=== PATIENT | male | born 1990 | race African-American/Black ===

== ENCOUNTER 2025-03-03 15:44 | Emergency (ER) | payer SELFPAY ==
[2025-03-03 15:53] VITALS: BP 139/82; PULSE 94; RESP 18; TEMP 37.2; O2SAT 100; BMI 22.6
--- NOTE | 2025-03-03 15:59 | ECG_ITS ---
Test Reason : NEAR SYNCOPE Blood Pressure : */* mmHG Vent. Rate : 87 BPM Atrial Rate : 87 BPM P-R Int : 142 ms QRS Dur : 84 ms QT Int : 318 ms P-R-T Axes : 82 72 60 degrees QTcB Int : 382 ms Normal sinus rhythm Minimal voltage criteria for LVH, may be normal variant ( Sokolow-Macario ) Borderline ECG No previous ECGs available Referred By: Danny Hopper Electronically Signed By: GABE SHOEMAKER MD
--- NOTE | 2025-03-03 16:02 | ED_ITS ---
HPI - General Adult General Chief complaint: General Medical Stated complaint: cholesterol test Time Seen by Provider: 03/03/25 16:59 Source: patient and old records reviewed Mode of arrival: ambulatory Limitations: no limitations History of Present Illness ED Provider: MICAH HPI narrative: 34 yo male no sig PMH here with c/o taking really hot showers and then feeling that he might pass out. No travel, URI, chest pain, trouble breathing, bloody stools. He states he also has intermittent bloody noses when he is exposed to the heat. He has no other bleeding anywhere else. He states he feels fine. He is requesting a cholesterol check. He is back to baseline. His symptoms are only associated with the heat. MD complaint: near syncope Onset (ago): day(s) (today) Radiation: non-radiation Severity: mild Relieving factors: rest Exacerbating factors: other (heat exposure) Associated symptoms: other Treatments prior to arrival: none Related Data Allergies Allergy/AdvReac Type Severity Reaction Status Date / Time No Known Allergies Allergy Verified 03/03/25 15:58 Review of Systems 2 Review of Systems: Constitutional : No Fever, No Chills, No Fatigue ENT/Mouth : No sore throat, No Rhinorrhea Eyes: No Eye Pain, No Swelling, No Redness Cardiovascular : No Chest Pain, No SOB, No Dyspnea on Exertion Respiratory : No Cough, No Sputum Gastrointestinal : No Nausea, No Vomiting, No Diarrhea, No abdominal Pain Genitourinary : No Dysuria, No Urinary Frequency, No Hematuria, Musculoskeletal : No joint pain, No Myalgias, No Joint Swelling Skin : No Skin Lesions, No rash Neuro : No Weakness, No Numbness, pos Dizziness, no Headache Psych : No Anxiety/Panic, No Depression All other systems reviewed and are negative [facility] Past Medical History Attestation statement: The following information was validated with the patient. Source: old records reviewed Medical History Near syncope Social History Social History (Updated 03/03/25 @ 17:14 by Molly Raymond DO) Patient Tobacco Use Status: Never used Tobacco Advance Directives: No Advance Directives Information Provided: No Do you have a plan to hurt others: No Plan Physical Exam ED Vital Signs: Vital Signs - 24 hr 03/03/25 15:53 Temperature 99.0 F Pulse Rate 94 Respiratory Rate 18 Blood Pressure 139/82 Pulse Oximetry 100 Oxygen Delivery Method Room Air BMI result Body Mass Index 22.6 Appearance: Alert. Oriented X3. No acute distress. Eyes: Pupils equal, round and reactive to light. ENT: Pharynx normal. L septum small area of redness and dryness no active bleeding Neck: Normal inspection. Neck supple. CVS: Normal heart rate and rhythm. Pulses normal. Respiratory: No respiratory distress. Breath sounds normal. Abdomen: Soft and nontender. Skin: Skin warm and dry. Normal skin color. Normal skin turgor. Extremities: No lower extremity edema. No calf ttp Neuro: Oriented X 3. No motor deficit. No sensory deficit. CN2-12 intact Course Course Course Narrative: RME: 34-year-old male presents to ED for near syncopal episode and wants to get cholesterol check. Patient has history of high blood pressure high cholesterol. Patient states he was in the shower that was very warm and hot and felt like he was about to pass out but did not pass out. Patient has sat down and felt his heart was racing. Patient well-appearing vital signs stable. EKG labs ordered. Medical Decision Making Medical Decision Making [facility] Narrative: 34 yo male otherwise healthy here with c/o having hx of heat exposures in shower when he felt he was going to pass out no LOC and no CP/SOB. He is PERC negative and has no ACS risk factors. His BP and labs are reassuring mild bump in LFTs he can follow up with PCP. His exam is normal. At this time suspect heat exposure. I did discuss lifestyle changes and he is also c/o intermittent hx of bloody noses - he is going to use OTC saline spray. He is stable for DC Differential Diagnosis Differential Diagnoses: The differential diagnosis associated with the presentation includes near syncope, orthostatics, dehydration, anemia Admission/Observation Consideration of admission/observation: Escalation of care including admission/observation considered work up reassuring stable for DC Lab Data [facility] Lab Attestation statement: I reviewed the patient's lab results. 03/03/25 16:15 03/03/25 16:15 Labs: Lab Results 03/03/25 Range/Units 16:15 WBC 8.0 (4.8-10.8) X10*3/uL RBC 4.42 L (4.60-5.80) X10*6/uL Hgb 14.2 (14.0-18.0) g/dl Hct 40.0 L (42.0-52.0) % MCV 90.5 (80.0-98.0) fL MCH 32.1 (27.0-33.0) pg MCHC 35.5 (31.0-36.0) g/dl RDW 12.0 (11.0-16.0) % Plt Count 166 (160-400) X10*3/uL MPV 10.9 (9.4-12.4) fL Immature Gran % (Auto) 0.2 (0.0-0.4) % Neut % (Auto) 56.9 (45-73) % Lymph % (Auto) 27.3 (20-40) % [place] % (Auto) 11.5 H (2-11) % Eos % (Auto) 3.2 (0-4) % Baso % (Auto) 0.9 (0-2) % Lymph # (Auto) 2.2 (1.2-4.9) X10*3/uL [place] # (Auto) 0.9 (0.1-1.2) X10*3/uL Eos # (Auto) 0.3 (0.0-0.4) X10*3/uL Baso # (Auto) 0.1 (0.0-0.2) X10*3/uL Abs Immat Gran (auto) 0.02 (0.00-0.03) X10*3/uL Absolute Neuts (auto) 4.6 (2.0-8.3) x10*3/uL Absolute Nucleated RBC 0.000 (0.0-0.012) X10*3/uL Nucleated RBC % (auto) 0.0 (0.0-0.2) /100WBC PT 12.8 H (10.9-12.4) SEC INR 1.1 (0.9-1.1) APTT 29.0 (26.0-36.8) SEC Sodium 138 (135-145) mmol/L Potassium 4.2 (3.3-5.1) mmol/L Chloride 107 (96-108) mmol/L Carbon Dioxide 27 (22-29) mmol/L Anion Gap 8 L (12-20) BUN 12 (9-16) mg/dL Creatinine 1.00 (0.5-1.4) mg/dL Estim Creat Clear Calc 104.4 Estimated GFR > 60 Random Glucose 97 (60-115) mg/dL Calcium 9.9 (8.4-10.2) mg/dL Total Bilirubin 0.4 (0.0-1.0) mg/dL AST 65 H (5-37) U/L ALT 45 H (0-40) U/L Alkaline Phosphatase 70 (39-117) U/L Troponin I High Sens < 2.7 (<3.5-35.0) ng/L Total Protein 7.9 (6.5-8.0) g/dL Albumin 4.9 (3.5-5.0) g/dL Triglycerides 136 (<150) mg/dL Cholesterol 119 (<200) mg/dL LDL Cholesterol, Calc 44 (<100) mg/dL HDL Cholesterol 48 (>40) mg/dL Independent Interpretation I performed an independent interpretation of an: EKG Interpretation: Rate: 87 Rhythm: NSR [place]: normal LVH Normal P waves. Normal [place]. Normal QRS complex. ST T wave : normal no JUDITH qTC: 382 prior studies: no acute ischemia The study has been interpreted contemporaneously by me. . Discharge Plan Discharge Clinical Impression: Near syncope Patient Disposition: Home, Self-Care Instructions: Near Syncope (ED) Additional Instructions: your labs and EKG are reassuring your LIVER enzymes are midly bumped you can follow up with your doctor to repeat these in the next 1 to 2 weeks return for any worsening symptoms or concerns - decrease the hotness of your shower use over the counter saline nasal spray to help keep nose area moist Interventions: ED Discharge Assessment Last Done: 03/03/25 17:21 Discharge Date/Time: 03/03/25 17:22 Print Language: Hungarian
[2025-03-03 16:21] LABS: MANUAL DIFF FLAG NO
[2025-03-03 16:33] LABS: Basophils Absolute Auto 0.1 X10*3/uL (0.0-0.2); Basophils Percent Auto 0.9 % (0-2); Eosinophils Absolute Auto 0.3 X10*3/uL (0.0-0.4); Eosinophils Percent Auto 3.2 % (0-4); Hemoglobin 14.2 g/dl (14.0-18.0); Imm Gran Abs Auto 0.02 X10*3/uL (0.00-0.03); Imm Gran Pct Auto 0.2 % (0.0-0.4); Lymphocytes Absolute Auto 2.2 X10*3/uL (1.2-4.9); Lymphocytes Percent Auto 27.3 % (20-40); Mean Corpuscular HGB Conc 35.5 g/dl (31.0-36.0); Mean Corpuscular Hemoglobin 32.1 pg (27.0-33.0); Mean Corpuscular Volume 90.5 fL (80.0-98.0); Mean Platelet Volume 10.9 fL (9.4-12.4); Monocytes Absolute Auto 0.9 X10*3/uL (0.1-1.2); Monocytes Percent Auto 11.5 % (2-11); Neutrophils Absolute Auto 4.6 x10*3/uL (2.0-8.3); Neutrophils Percent Auto 56.9 % (45-73); Platelet Count 166 X10*3/uL (160-400); Red Blood Count 4.42 X10*6/uL (4.60-5.80)
[2025-03-03 16:36] LABS: INTERNATIONAL NORM RATIO 1.1 (0.9-1.1); Prothrombin Time 12.8 SEC (10.9-12.4)
[2025-03-03 16:45] LABS: Alanine Aminotransferase 45 U/L (0-40); Albumin Level 4.9 g/dL (3.5-5.0); Anion Gap 8 (12-20); Aspartate Amino Transferase 65 U/L (5-37); Bilirubin Total 0.4 mg/dL (0.0-1.0); Blood Urea Nitrogen 12 mg/dL (9-16); Calcium 9.9 mg/dL (8.4-10.2); Carbon Dioxide 27 mmol/L (22-29); Chloride 107 mmol/L (96-108); Cholesterol 119 mg/dL (<200); Creatinine Clr Calc Pharmacy 104.4; Estimated Glomerular Filt Rate > 60; Glucose Random 97 mg/dL (60-115); HDL Cholesterol 48 mg/dL (>40); LDL Cholesterol Calculated 44 mg/dL (<100); Potassium 4.2 mmol/L (3.3-5.1); Sodium 138 mmol/L (135-145); Total Protein 7.9 g/dL (6.5-8.0); Triglycerides 136 mg/dL (<150); Troponin-I High Sensitivity < 2.7 ng/L (<3.5-35.0)
[2025-03-03 17:15] VITALS: BP 128/83; PULSE 84; RESP 14; TEMP 36.9; O2SAT 100
[2025-03-03 17:16] LABS: Alkaline Phosphatase 70 U/L (39-117)
[2025-03-03 17:21] VITALS: BP 128/83; PULSE 84; RESP 14; TEMP 36.9; O2SAT 100
== END 2025-03-03 17:22 | disposition home or self-care (01) ==
PROVIDERS: Physician Assistant; Emergency Provider Emergency Medicine
DX: R55 Syncope and collapse (principal); R19.5 Other fecal abnormalities; R04.0 Epistaxis
CPT/HCPCS: 36415; 80053; 80061; 84484; 85025; 85610; 85730; 93005; 99283; 99284

== ENCOUNTER → 2025-03-03 15:59 | Outpatient (BNV) | payer SELFPAY | PROVIDERS: Emergency Provider Emergency Medicine; Visit Provider Internal Medicine Cardiovascular Disease | DX: R55 Syncope and collapse (principal) | CPT/HCPCS: 93010 ==